=== PATIENT | male | born 1975 | race Two or more races ===

== ENCOUNTER 2021-09-08 08:15 | Emergency (ER) | payer OTHER ==
[~2021-09-08] VITALS: Ht 177.8 cm; Wt 91.6 kg
[2021-09-08 09:56] VITALS: BP 125/52
[2021-09-08] MEDS ORDERED: ACETAMINOPHEN 325 MG TAB PO ONE (10:30)
[2021-09-08] MEDS ORDERED: TETANUS-DIPTH-ACEL PERTUSSIS 0.5ML SYR Tdap IM ONE (10:30)
[2021-09-08] MEDS ORDERED: CEPH-509 PO (10:38)
[2021-09-08] MEDS ORDERED: ACET-1158 PO (10:38)
[2021-09-08] MEDS ORDERED: LIDOCAINE 1%HCL (LOCAL ANESTH) 10 ML MDV XX ONE (11:00)
[2021-09-08] MEDS ORDERED: cefTRIAXone SOD 1,000 MG VL IM ONE (11:00)
[2021-09-08] MEDS ORDERED: LIDOCAINE 1% HCL (LOCAL ANESTH.) INJ 20ML MDV ID ONE (11:00)
== END 2021-09-08 11:41 | disposition home or self-care (01) ==
LOC: ER 08:15
DX: S01.01XA Laceration without foreign body of scalp, initial encounter (principal); Z79.899 Other long term (current) drug therapy; W26.8XXA Contact with other sharp object(s), not elsewhere classified, initial encounter; Y93.89 Activity, other specified; Y92.89 Other specified places as the place of occurrence of the external cause; Y99.8 Other external cause status
CPT/HCPCS: 12002; 70450; 90471; 90715; 96372; 99284; J0696; J2001